=== PATIENT | female | born 1935 | race Caucasian/White ===

== ENCOUNTER → 2016-12-20 | Outpatient (CLI) | payer OTHER ==
[~2016-12-20] MED LIST: ACET-1256 PO; ALD2525 PO; ALUM-30 PO; AMT10 PO; ASPEC81 PO; ATV5 PO; CLTP PO; CRS20 PO; MULT-506 PO; PARO1TAB27 PO; POLY335019 PO; PRLSR20 PO; PROP20TA67 PO; TRAV0.00 OPB; VERA360C2 PO; ZOLP5TAB6 PO
== END | disposition home or self-care (01) ==
LOC: C.PATHSPEC 09:48
PROVIDERS: ATTEND Internal Medicine
DX: L82.1 Other seborrheic keratosis (principal)

== ENCOUNTER → 2017-03-07 | Outpatient (CLI) | payer OTHER ==
[2017-03-07 12:26] LABS: BASO % 0.7 %; BASO ABS # 0.04 K/uL (0-0.2); COMPLETE YES; EOS % 2.9 %; HEMATOCRIT 42.2 % (37-47); LYMPH % 29.9 %; LYMPH ABS # 1.75 K/uL (1.2-3.4); MEAN CELL VOLUME 93.4 fL (80-100); MEAN CORPUSCULAR HEMOGLOBIN 31.2 pg (25-34); MEAN CORPUSCULAR HGB CONC 33.4 g/dl (32-36); MEAN PLATELET VOLUME 9.8 fL (7.4-10.4); MONO % 9.6 %; NEUT % 56.9 %; PLATELET COUNT 305 K/uL (130-400); RED BLOOD COUNT 4.52 M/uL (4.2-5.4); WHITE BLOOD COUNT 5.86 K/uL (4.8-10.8)
[2017-03-07 12:56] LABS: AST/SGOT 20 U/L (15-37); BLOOD UREA NITROGEN 26 mg/dl (7-18); BUN/CREATININE RATIO 23.4 (10-20); CARBON DIOXIDE 31 mmol/L (21-32); CHLORIDE 99 mmol/L (98-107); CHOLESTEROL 181 mg/dl (0-200); GLUCOSE 112 mg/dl (70-99); POTASSIUM 3.6 mmol/L (3.5-5.1); SODIUM 139 mmol/L (136-145); TRIGLYCERIDES 139 mg/dl (0-150); VERY LOW DENSITY LIPOPROT CALC 28 mg/dl
[2017-03-07 13:06] LABS: ALB/GLOB RATIO 1.2 (0.9-2); ALKALINE PHOSPHATASE 113 U/L (45-117); ALT/SGPT 32 U/L (12-78); CHOLESTEROL/HDL RATIO 3.4; HDL CHOLESTEROL 53 mg/dl
[2017-03-07 13:21] LABS: CALCIUM 10.7 mg/dl (8.5-10.1)
--- NOTE | 2017-03-22 09:25 | CODING QUERY MEDICAL NECESSITY ---
SUPPORTING DIAGNOSIS NEEDED A supporting diagnosis is required for the test/procedure performed on this patient in order for us to be reimbursed by the patient's insurance. Please provide a supporting diagnosis for the following test/procedure listed below next to the test name along with your signature. *If there is no additional diagnosis for this patient that would support the following test/procedure please document that below next to the test/procedure. Test(s)/Procedure(s) that require a supporting diagnosis: DOS 03/07 * Vitamin D DIAGNOSIS: Provider Signature: Date: Thank you Karina Crowe Health Information Management Once completed, please kindly fax back to [phone] For questions please call [phone]
== END | disposition home or self-care (01) ==
LOC: C.LABSPEC 12:02
PROVIDERS: ATTEND Internal Medicine
DX: I10 Essential (primary) hypertension (principal); I48.91 Unspecified atrial fibrillation; E78.5 Hyperlipidemia, unspecified; M19.90 Unspecified osteoarthritis, unspecified site; R53.83 Other fatigue; M85.80 Other specified disorders of bone density and structure, unspecified site

== ENCOUNTER → 2017-06-28 | Outpatient (CLI) | payer OTHER ==
--- NOTE | 2017-06-29 07:57 | MAMMOGRAPHY REPORT ---
BILATERAL DIGITAL SCREENING MAMMOGRAM WITH CAD: 06/28/2017 CLINICAL HISTORY: Routine screening. Patient has no complaints. TECHNIQUE: Bilateral CC, MLO and repeat MLO views were obtained. Current study was also evaluated wi th a Computer Aided Detection (CAD) system. COMPARISON: Comparison is made to exams dated: 06/24/2016 mammogram, 06/23/2015 mammogram, 06/20/2014 ma mmogram, 06/18/2013 mammogram, 12/22/2012 ultrasound, and 12/22/2012 mammogram - [facility] er. BREAST COMPOSITION: There are scattered areas of fibroglandular density in both breasts. FINDINGS: There is stable nodularity of the left breast. Bilateral benign rim calcifications and sta ble groupings of round and punctate benign-appearing microcalcifications. Mild vascular calcificatio n in both breasts. No suspicious mass, architectural distortion or cluster of suspicious microcalcif ications is seen. IMPRESSION: ACR BI-RADS CATEGORY 1: NEGATIVE There is no mammographic evidence of malignancy. A 1 year screening mammogram is recommended. The pa tient will receive written notification of the results. Approximately 10% of breast cancers are not detected with mammography. A negative mammographic report should not delay biopsy if a clinically suggestive mass is present. Fouzia Santillan M.D. ay/:06/28/2017 14:29:08 Well Reactivator Operator: Cathy CORONA(Pacheco)(M), [facility] letter sent: Normal 1/2 BI-RADS Code: ACR BI-RADS Category 1: Negative
== END | disposition home or self-care (01) ==
LOC: C.MAMM 11:45
PROVIDERS: ATTEND Internal Medicine
DX: Z12.31 Encounter for screening mammogram for malignant neoplasm of breast (principal)

== ENCOUNTER → 2017-07-05 | Outpatient (CLI) | payer OTHER | END | disposition home or self-care (01) | LOC: C.LABSPEC 14:48 | PROVIDERS: ATTEND Internal Medicine | DX: Z12.11 Encounter for screening for malignant neoplasm of colon (principal) ==

== ENCOUNTER 2017-12-27 17:14 | Emergency (ER) | payer OTHER ==
[~2017-12-27] VITALS: Ht 167.6 cm; Wt 69.1 kg
[2017-12-27 17:27] VITALS: TEMP 36.5; Ht 167.6 cm; Wt 69.1 kg
--- NOTE | 2017-12-27 17:59 | DIAGNOSTIC IMAGING REPORT ---
CHEST ONE VIEW PORTABLE HISTORY: 82 years-old Female EVALUATE WEAKNESS acute weakness COMPARISON: Chest radiograph 03/19/2016 TECHNIQUE: Portable AP view of the chest FINDINGS: Cardiomediastinal and hilar silhouettes are within normal limits. No pneumothorax or pleural effusion. No overt pulmonary edema. Left subclavian pacer is noted with leads appearing unchanged. Ill-defined opacities of the lateral left midlung are noted inferior to the left pectoral battery pack. Additional patchy opacities are noted within the lateral left lung base. Bones appear grossly intact. IMPRESSION: Ill-defined patchy opacities of the left lateral midlung and left lung base are suspicious for pneumonia in the appropriate clinical setting. The above report was generated using voice recognition software. It may contain grammatical, syntax or spelling errors. Electronically signed by: Richmond Levine M.D. 12/27/2017 5:58 PM Dictated Date/Time: 12/27/2017 5:56 PM
[2017-12-27 18:27] VITALS: O2SAT 95
[2017-12-27 18:32] LABS: BASO % 0.2 %; BASO ABS # 0.02 K/uL (0-0.2); EOS % 1.2 %; HEMATOCRIT 40.4 % (37-47); HEMOGLOBIN 14.2 g/dL (12.0-16.0); IG# 0.02 K/uL (0.00-0.02); LYMPH % 16.5 %; MEAN CELL VOLUME 91.2 fL (80-100); MEAN CORPUSCULAR HEMOGLOBIN 32.1 pg (25-34); MEAN CORPUSCULAR HGB CONC 35.1 g/dl (32-36); MEAN PLATELET VOLUME 9.2 fL (7.4-10.4); MONO % 8.4 %; MONO ABS # 0.71 K/uL (0.11-0.59); NEUT % 73.5 %; NEUT ABS # 6.24 K/uL (1.4-6.5); PLATELET COUNT 310 K/uL (130-400); RED CELL DISTRIBUTION WIDTH CV 12.1 % (11.5-14.5); RED CELL DISTRIBUTION WIDTH SD 40.7 fL (36.4-46.3); WHITE BLOOD COUNT 8.49 K/uL (4.8-10.8)
[2017-12-27 18:44] LABS: PTT PATIENT 27.1 SECONDS (21.0-31.0)
--- NOTE | 2017-12-27 18:50 | DIAGNOSTIC IMAGING REPORT ---
HEAD WITHOUT CONTRAST (CT) CLINICAL HISTORY: 82 years-old Female presenting with EVALUATE WEAKNESS. TECHNIQUE: Multidetector CT imaging of the head was performed without the use of intravenous contrast. IV contrast: None. A dose lowering technique was used consistent with the principles of ALARA (as low as reasonably achievable). COMPARISON: None. CT DOSE (mGy.cm): The estimated cumulative dose is 537.48 mGy.cm. FINDINGS: Educational/Development Assistant topogram: Unremarkable. Ventricles and sulci normal in size. Brain parenchyma normal in appearance with preserved nam-white differentiation. No mass effect or midline shift. No hemorrhage or acute territorial infarct. No extra-axial fluid collection. Polypoid mucosal thickening in the right posterior ethmoid air cells. Calvarium intact. IMPRESSION: 1. No acute intracranial abnormality. Electronically signed by: Demond Villa M.D. 12/27/2017 6:48 PM Dictated Date/Time: 12/27/2017 6:46 PM
[2017-12-27 19:02] LABS: ALKALINE PHOSPHATASE 127 U/L (45-117); ALT/SGPT 25 U/L (12-78); AST/SGOT 18 U/L (15-37); BLOOD UREA NITROGEN 24 mg/dl (7-18); CALCIUM 9.6 mg/dl (8.5-10.1); CARBON DIOXIDE 28 mmol/L (21-32); CREATININE 1.12 mg/dl (0.60-1.20); GLUCOSE 106 mg/dl (70-99); POTASSIUM 3.5 mmol/L (3.5-5.1); SODIUM 134 mmol/L (136-145); TOTAL PROTEIN 7.8 gm/dl (6.4-8.2)
[2017-12-27] MEDS ORDERED: XLTOPS OPB (21:04)
[2017-12-27] MEDS ORDERED: SPR25 PO (21:04)
[2017-12-27] MEDS ORDERED: OMEP20CA9 PO (21:04)
[2017-12-27] MEDS ORDERED: PXL20 PO (21:04)
[2017-12-27] MEDS ORDERED: MRLP527 PO (21:04)
[2017-12-27] MEDS ORDERED: AMIT10TA6 PO (21:04)
[2017-12-27] MEDS ORDERED: LORA0.5T12 PO (21:04)
[2017-12-27] MEDS ORDERED: BRIM0.2S OPB (21:04)
[2017-12-27] MEDS ORDERED: ROSU20TA PO (21:06)
[2017-12-27] MEDS ORDERED: ASPEC81 PO (21:06)
[2017-12-27] MEDS ORDERED: HYDR25TA4 PO (21:09)
[2017-12-27] MEDS ORDERED: CALC-575 PO (21:09)
[2017-12-27] MEDS ORDERED: MULT-223 PO (21:09)
[2017-12-27] MEDS ORDERED: MULT-190 PO (21:18)
[2017-12-27 22:50] VITALS: BP 120/71; PULSE 69; O2SAT 93
--- NOTE | 2017-12-27 23:28 | EMERGENCY ROOM VISIT NOTE ---
History Report prepared by Patrick: Stanford Keenan Under the Supervision of: Dr. Baldev Ruth D.O. First contact with patient: 17:18 Stated Complaint: PAIN BETWEEN SHOULDER BLADES History of Present Illness The patient is a 82 year old female who presents to the Emergency Room with complaints of constant nausea that began at 1330. The patient states that she ate lunch at 1330 when she developed a headache and lightheadedness. The patient states that her lightheadedness caused her to become nauseous. She reports that following these symptoms she became short of breath and developed back pain between her shoulders. She states that her shortness of breath was worsened when she was standing and relieved with sitting down. The patient states that she has had similar episodes with these symptoms about 2-3 times a year. She states that her PCP tells her to take Propranolol and to sit down whenever she experiences these episodes. The patient states that she also developed a cough today. She reports that she is still currently nauseous and experiencing back pain, but reports that her headache and lightheadedness resolved. She denies change in vision, fevers, chest pain, vomiting, diarrhea, pain with urination, and melena. Source of History: patient Onset: 1330 Position: other (global) Quality: other (global) Timing: constant Associated Symptoms: + headache, + cough, + SOB, + back pain, No fevers, No chest pain, No vomiting, No melena, No diarrhea, No urinary symptoms Review of Systems See HPI for pertinent positives & negatives. A total of 10 systems reviewed and were otherwise negative. Past Medical & Surgical Medical Problems: (1) Arterial hypertension (2) CHEST PAIN DYSPNEA (3) Idiopathic peripheral neuropathy Family History Heart disease Hypertension Social History Smoking Status: Never Smoker Marital Status: Occupation Status: retired Current/Historical Medications Scheduled Acetaminophen (Tylenol), 1,000 MG PO HS Amitriptyline Hcl (Elavil), 20 MG PO QPM Aspirin (Aspirin EC Low Dose), 81 MG PO QPM Brimonidine Tartrate-Timolol M (Combigan), 1 DROP OPB BID Calcium Carbonate-Cholecalcife (Calcium 500+D3 500-400 mg-Unit), 1 TAB PO BID Hydrochlorothiazide (Hctz), 50 MG PO QAM Latanoprost (Latanoprost), 1 DROP OPB QPM Multiple Vitamins W/ Minerals (Multi For Her 50+), 1 TAB PO QAM Ocuvite Preservision (Ocuvite Preservision), 1 TAB PO QAM Omeprazole (Prilosec), 20 MG PO QPM Paroxetine (Paroxetine HCl), 20 MG PO QPM Rosuvastatin Calcium (Crestor), 20 MG PO QPM Spironolactone (Spironolactone), 50 MG PO QAM Verapamil Hcl (Verapamil Hcl Sr), 360 MG PO QAM Scheduled PRN Lorazepam (Lorazepam), 0.5 MG PO DAILY PRN for Anxiety Polyethylene (Polyethylene Glycol 3350), 17 GM PO DAILY PRN for Constipation Allergies Coded Allergies: No Known Allergies (Unverified , 02/19/16) Physical Exam Vital Signs Date Time Temp Pulse Resp B/P (MAP) Pulse Ox O2 Delivery O2 Flow Rate FiO2 12/27/17 22:50 69 22 120/71 93 12/27/17 21:58 65 12/27/17 20:51 65 15 128/61 95 Room Air 12/27/17 19:02 66 20 124/75 94 Room Air 12/27/17 19:02 66 20 124/75 94 Room Air 64 119/68 71 102/59 12/27/17 18:27 95 Room Air 12/27/17 17:46 62 12/27/17 17:27 36.5 94 18 133/78 95 Room Air Physical Exam GENERAL: Sitting up in bed, alert, well appearing, well nourished, no distress, non-toxic EYE EXAM: normal conjunctiva. PERRL and EOM's intact. OROPHARYNX: no exudate, no erythema, lips, buccal mucosa, and tongue normal and mucous membranes are moist NECK: supple, no nuchal rigidity, no adenopathy, non-tender LUNGS: Clear to auscultation. Normal chest wall mechanics HEART: no murmurs, S1 normal and S2 normal ABDOMEN: abdomen soft, non-tender, normo-active bowel sounds, no masses, no rebound or guarding. BACK: Back is symmetrical on inspection and there is no deformity, no midline tenderness, no CVA tenderness. SKIN: no rashes and no bruising UPPER EXTREMITIES: upper extremities are grossly normal. LOWER EXTREMITIES: No pitting edema. Calves are equal bilaterally. NEURO EXAM: Normal sensorium, cranial nerves II-XII intact, normal speech, no weakness of arms, no weakness of legs. No drift. Finger to nose intact. Gross sensation intact. Medical Decision & Procedures ER Provider Diagnostic Interpretation: Radiology results as stated below per my review and the radiologist's interpretation: HEAD WITHOUT CONTRAST (CT) CLINICAL HISTORY: 82 years-old Female presenting with EVALUATE WEAKNESS. TECHNIQUE: Multidetector CT imaging of the head was performed without the use of intravenous contrast. IV contrast: None. A dose lowering technique was used consistent with the principles of ALARA (as low as reasonably achievable). COMPARISON: None. CT DOSE (mGy.cm): The estimated cumulative dose is 537.48 mGy.cm. FINDINGS: Awning Spreader topogram: Unremarkable. Ventricles and sulci normal in size. Brain parenchyma normal in appearance with preserved nam-white differentiation. No mass effect or midline shift. No hemorrhage or acute territorial infarct. No extra-axial fluid collection. Polypoid mucosal thickening in the right posterior ethmoid air cells. Calvarium intact. IMPRESSION: 1. No acute intracranial abnormality. Electronically signed by: Demond Villa M.D. 12/27/2017 6:48 PM Dictated Date/Time: 12/27/2017 6:46 PM CHEST ONE VIEW PORTABLE HISTORY: 82 years-old Female EVALUATE WEAKNESS acute weakness COMPARISON: Chest radiograph 03/19/2016 TECHNIQUE: Portable AP view of the chest FINDINGS: Cardiomediastinal and hilar silhouettes are within normal limits. No pneumothorax or pleural effusion. No overt pulmonary edema. Left subclavian pacer is noted with leads appearing unchanged. Ill-defined opacities of the lateral left midlung are noted inferior to the left pectoral battery pack. Additional patchy opacities are noted within the lateral left lung base. Bones appear grossly intact. IMPRESSION: Ill-defined patchy opacities of the left lateral midlung and left lung base are suspicious for pneumonia in the appropriate clinical setting. The above report was generated using voice recognition software. It may contain grammatical, syntax or spelling errors. Electronically signed by: Richmond Levine M.D. 12/27/2017 5:58 PM Dictated Date/Time: 12/27/2017 5:56 PM Laboratory Results 12/27/17 18:22 Red Blood Count 4.43, Mean Corpuscular Volume 91.2, Mean Corpuscular Hemoglobin 32.1, Mean Corpuscular Hemoglobin Concent 35.1, Mean Platelet Volume 9.2, Neutrophils (%) (Auto) 73.5, Lymphocytes (%) (Auto) 16.5, Monocytes (%) (Auto) 8.4, Eosinophils (%) (Auto) 1.2, Basophils (%) (Auto) 0.2, Neutrophils # (Auto) 6.24, Lymphocytes # (Auto) 1.40, Monocytes # (Auto) 0.71, Eosinophils # (Auto) 0.10, Basophils # (Auto) 0.02 12/27/17 18:22 Test 12/27/17 18:22 12/27/17 19:08 12/27/17 19:13 12/27/17 20:19 White Blood Count 8.49 K/uL (4.8-10.8) Red Blood Count 4.43 M/uL (4.2-5.4) Hemoglobin 14.2 g/dL (12.0-16.0) Hematocrit 40.4 % (37-47) Mean Corpuscular Volume 91.2 fL (80-100) Mean Corpuscular Hemoglobin 32.1 pg (25-34) Mean Corpuscular Hemoglobin Concent 35.1 g/dl (32-36) Platelet Count 310 K/uL (130-400) Mean Platelet Volume 9.2 fL (7.4-10.4) Neutrophils (%) (Auto) 73.5 % Lymphocytes (%) (Auto) 16.5 % Monocytes (%) (Auto) 8.4 % Eosinophils (%) (Auto) 1.2 % Basophils (%) (Auto) 0.2 % Neutrophils # (Auto) 6.24 K/uL (1.4-6.5) Lymphocytes # (Auto) 1.40 K/uL (1.2-3.4) Monocytes # (Auto) 0.71 K/uL (0.11-0.59) Eosinophils # (Auto) 0.10 K/uL (0-0.5) Basophils # (Auto) 0.02 K/uL (0-0.2) RDW Standard Deviation 40.7 fL (36.4-46.3) RDW Coefficient of Variation 12.1 % (11.5-14.5) Immature Granulocyte % (Auto) 0.2 % Immature Granulocyte # (Auto) 0.02 K/uL (0.00-0.02) Prothrombin Time 10.3 SECONDS (9.0-12.0) Prothromb Time International Ratio 1.0 (0.9-1.1) Activated Partial Thromboplast Time 27.1 SECONDS (21.0-31.0) Partial Thromboplastin Ratio 1.0 D-Dimer 340 ug/L FEU (0-500) Anion Gap 9.0 mmol/L (3-11) Est Creatinine Clear Calc Drug Dose 35.6 ml/min Estimated GFR () 52.6 Estimated GFR (Non- 45.4 BUN/Creatinine Ratio 21.7 (10-20) Calcium Level 9.6 mg/dl (8.5-10.1) Total Bilirubin 0.3 mg/dl (0.2-1) Direct Bilirubin 0.1 mg/dl (0-0.2) Aspartate Amino Transf (AST/SGOT) 18 U/L (15-37) Alanine Aminotransferase (ALT/SGPT) 25 U/L (12-78) Alkaline Phosphatase 127 U/L (45-117) Total Protein 7.8 gm/dl (6.4-8.2) Albumin 4.0 gm/dl (3.4-5.0) Thyroid Stimulating Hormone (TSH) 2.230 uIu/ml (0.300-4.500) Urine Color YELLOW Urine Appearance CLEAR (CLEAR) Urine pH 7.0 (4.5-7.5) Urine Specific [place] 1.008 (1.000-1.030) Urine Protein NEG (NEG) Urine Glucose (UA) NEG (NEG) Urine Ketones NEG (NEG) Urine Occult Blood NEG (NEG) Urine Nitrite NEG (NEG) Urine Bilirubin NEG (NEG) Urine Urobilinogen NEG (NEG) Urine Leukocyte Esterase NEG (NEG) Bedside Glucose 102 mg/dl (70-90) Troponin I < 0.015 ng/ml (0-0.045) Laboratory results per my review. ECG Indication: nausea Rate (beats per minute): 62 Rhythm: other (atrial paced) Findings: Q waves (Inferior), left axis deviation Comparison ECG Date: 03/20/16 Change: Atrial paced is new. Patient's electrocardiogram interpreted by me. ED Course ED COURSE: Vital signs were reviewed and showed normal The patients medical record was reviewed The above diagnostic studies were performed and reviewed. ED treatments and interventions as stated above. 1720: The patient was evaluated in room C09. A complete history and physical examination was performed. 1812: I reevaluated the patient and updated her. 1943: I reevaluated the patient and she is resting comfortably. I updated her on her results. 2238: Upon reevaluation, the patient is resting comfortably. I discussed my findings with the patient and he understands and agrees with the treatment plan. Based on the patients age, coexisting illnesses, exam and lab findings the decision to treat as an outpatient was made. The patient remained stable while under my care. The patient appeared well at the time of discharge. Medical Decision Differential diagnosis includes etiologies such as benign positional vertigo, dehydration, hypovolemia, anemia, tumor, infection, hypoglycemia, electrolyte abnormalities, cardiac sources, intracerebral event, toxicologic, neurologic, as well as others were entertained. Patient is an 82-year-old female who presents the ER for nausea associated with lightheadedness and shortness of breath. CBC along with BMP, LFTs and bilirubin and TSH was unremarkable. Troponin was negative 2. D-dimer was negative. UA was negative. Abdominal exam and neurologic exam were completely unremarkable. Back pain did have clear reproducible paraspinal tenderness which I believe is muscle skeletal. CT head was negative. Interrogation of her pacemaker was unremarkable. Patient was up to the bedside. It took a prolonged period to interrogate her pacemaker due to technical difficulties. She felt 100% better. Uncertain of the true etiologies of her symptoms however I do not feel that this is likely cardiac. I also do not feel this is neurologic at this time. Did give them strict precautions and she was discharged to follow-up with PCP as an outpatient. Discussed with Pt concerning signs and symptoms to watch out for. Pt was instructed to follow up with their PCP and discussed with the patient their option to return to the ED at anytime for persistent or worsening symptoms. The appropriate anticipatory guidance and out-patient management, including indications for return to the emergency department, were explained at length to the patient and understood. Medication Reconcilliation Current Medication List: was personally reviewed by me Blood Pressure Screening Patient's blood pressure: Normal blood pressure Impression Primary Impression: Lightheaded Additional Impressions: Shortness of breath Hypokalemia Scribe Attestation The scribe's documentation has been prepared under my direction and personally reviewed by me in its entirety. I confirm that the note above accurately reflects all work, treatment, procedures, and medical decision making performed by me. Departure Information Dispostion Home / Self-Care Referrals Jameel Taylor M.D. (PCP) Forms HOME CARE DOCUMENTATION FORM, IMPORTANT VISIT INFORMATION, WORK / SCHOOL INSTRUCTIONS Patient Instructions ED Dizziness UKO, ED Dyspnea Shortness of Breath, My [facility] Additional Instructions Please follow up with your primary care doctor with in the next 24 hours. Any worsening of your symptoms, please return to the ED immediately. This includes any fevers greater than 100.4, worsening pain, chest pain, shortness breath, persistent nausea, vomiting, unable to eat or drink, or any other concerning signs or symptoms from your standpoint. Problem Qualifiers
== END 2017-12-27 22:50 | disposition home or self-care (01) ==
LOC: EDBD 17:14 → C.EDC 17:15
DX: R42 Dizziness and giddiness (principal); R06.02 Shortness of breath; E87.6 Hypokalemia; I10 Essential (primary) hypertension; G60.9 Hereditary and idiopathic neuropathy, unspecified; Z82.49 Family history of ischemic heart disease and other diseases of the circulatory system; Z79.82 Long term (current) use of aspirin; Z79.899 Other long term (current) drug therapy; Z95.0 Presence of cardiac pacemaker

== ENCOUNTER → 2018-06-29 | Outpatient (CLI) | payer OTHER ==
[~2018-06-29] MED LIST changes: -ALD2525 PO; -ALUM-30 PO; +AMIT10TA6 PO; -AMT10 PO; -ASPEC81 PO; +ASPI-320 PO; -ATV5 PO; +BRIM0.2S OPB; +CALC-575 PO; -CLTP PO; -CRS20 PO; +HYDR25TA4 PO; +LORA0.5T12 PO; +MRLP527 PO; +MULT-190 PO; +MULT-223 PO; -MULT-506 PO; +OMEP20CA9 PO; -PARO1TAB27 PO; -POLY335019 PO; -PRLSR20 PO; -PROP20TA67 PO; +PXL20 PO; +ROSU20TA PO; +SPIR25TA6 PO; -TRAV0.00 OPB; +XLTOPS OPB; -ZOLP5TAB6 PO
--- NOTE | 2018-06-29 15:40 | MAMMOGRAPHY REPORT ---
BILATERAL DIGITAL SCREENING MAMMOGRAM TOMOSYNTHESIS WITH CAD: 06/29/2018 CLINICAL HISTORY: Routine screening. Patient has no complaints. TECHNIQUE: The study was acquired using full field digital technology and interpreted from soft copy. Breast tomosynthesis in addition to standard 2D mammography was performed. Current study was also ev aluated with a Computer Aided Detection (CAD) system. COMPARISON: Comparison is made to exams dated: 06/28/2017 mammogram, 06/24/2016 mammogram, 06/23/2015 m ammogram, 06/18/2013 mammogram, 12/22/2012 ultrasound, and 12/28/2011 mammogram - [facility]ter. BREAST COMPOSITION: There are scattered areas of fibroglandular density in both breasts. FINDINGS: No suspicious masses, calcifications, or areas of architectural distortion are noted in either breast . There has been no significant interval change compared to prior exams. Bilateral benign-appearing calcifications and bilateral nodularity are not significantly changed compared to prior exams. IMPRESSION: ACR BI-RADS CATEGORY 2: BENIGN There is no mammographic evidence of malignancy. A 1 year screening mammogram is recommended.( 019) The patient will receive written notification of the results. Some breast cancers are not detected with mammography. A negative mammographic report should not abdoul y biopsy if a clinically suggestive mass is present. Gunjan Petit M.D. ah/:06/29/2018 14:31:34 Network Strategist: RT Mathew(Pacheco)(M), [facility] letter sent: Normal 1/2 BI-RADS Code: ACR BI-RADS Category 2: Benign
== END | disposition home or self-care (01) ==
LOC: C.MAMM 12:55
PROVIDERS: ATTEND Internal Medicine
DX: Z12.31 Encounter for screening mammogram for malignant neoplasm of breast (principal)

== ENCOUNTER 2023-12-30 13:54 | Observation (INO) ==
--- NOTE | 2023-12-30 14:07 | ED Triage Note ---
Date of Service December 30, 2023 Provider in Triage Author: Theodora Chowdhury History of Present Illness This patient was briefly evaluated while in triage. An abbreviated physical exam was performed. This patient is a 88-year-old Female who presents to the ED for evaluation of abdominal pain in lower abdomen and vomiting since this morning upon waking. Physical Exam CONSTITUTIONAL: in no acute pain or distress, resting comfortably SKIN: pink, warm, dry CARDIAC: regular rate and rhythm RESPIRATORY: in no respiratory distress, lungs clear to auscultation ABDOMEN: low pelvic TTP MSK: 5/5 strength throughout NEURO: no neuro deficits, alert and oriented x 3 Initial orders for labs and / or imaging were placed and patient was placed in the waiting area until a bed is available. Please see further documentation for the full ED course.
[2023-12-30] MEDS: ONDANSETRON INJ 2 MG/ML 2 ML VIAL IV STA (15:19)
[2023-12-30] MEDS: SODIUM CHLORIDE 0.9% 1,000 ML IV STA (15:19)
[2023-12-30 16:01] LABS: Basophils # (auto) 0.06 K/uL (0.00-0.20); Basophils % (auto) 0.3 %; Eosinophils # (auto) 0.02 K/uL (0.00-0.50); Eosinophils % (auto) 0.1 %; Hematocrit (blood only) 45.2 % (37.0-47.0); Hemoglobin 15.3 g/dl (12.0-16.0); Immature Granulocytes # (auto) 0.11 K/uL (0.01-0.20); Immature Granulocytes % (auto) 0.6 %; Lymphocytes # (auto) 1.07 K/uL (1.20-3.40); Lymphocytes % (auto) 6.1 %; Mean Corpuscular Hemoglobin 32.1 pg (25.0-34.0); Mean Corpuscular Hgb Conc 33.8 g/dL (32.0-36.0); Mean Corpuscular Volume 94.8 fL (80.0-100.0); Mean Platelet Volume 9.6 fL (9.4-12.4); Monocytes # (auto) 1.19 K/uL (0.11-0.59); Monocytes % (auto) 6.8 %; Neutrophils # (auto) 15.16 K/uL (1.40-6.50); Neutrophils % (auto) 86.1 %; Platelet Count 290 K/uL (130-400); RDW Coefficient of Variation 12.2 % (11.5-14.5); RDW Standard Deviation 42.5 fL (36.4-46.3); Red Blood Count 4.77 M/uL (4.20-5.40); White Blood Count 17.61 K/ul (4.8-10.8)
[2023-12-30 16:10] LABS: Albumin Globulin Ratio 1.7 (0.9-2); Albumin Level 4.7 gm/dl (3.4-5.0); BUN Creatinine Ratio 20.7 (10-20); Bilirubin,Total 0.8 mg/dl (0.2-1.0); Calcium 11.1 mg/dl (8.6-10.3); Creatinine Clr Calc Pharmacy 43.2 ml/min; Est GFR (Non-African American) 55.2 ml/min; Globulin 2.8 gm/dl (2.5-4.0); Potassium 3.3 mmol/L (3.5-5.1); Total Protein 7.5 gm/dl (6.0-8.3)
[2023-12-30] MEDS: OPTIRAY 320 500ml IV ONE (19:31)
--- NOTE | 2023-12-30 19:48 | CT Scan Report ---
Exam(s): CT ABDOMEN + PELVIS With Contrast IV Amt: 92 cc opti 320 EXAM: CT Abdomen and Pelvis With Intravenous Contrast CLINICAL HISTORY: Reason for exam: abd pain, vomiting. TECHNIQUE: Axial computed tomography images of the abdomen and pelvis with intravenous contrast. CTDI is 19.72 mGy and DLP is 962.01 mGy-cm. Automated exposure control was utilized for the study. A dose lowering technique was utilized adhering to the principles of ALARA. CONTRAST: Patient received 92 cc opti 320 of IV contrast COMPARISON: CT abdomen pelvis 02/12/2016 FINDINGS: Mediastinum: Trace hiatal hernia. ABDOMEN: Liver: Unremarkable. Gallbladder and bile ducts: Cholecystectomy. Dilated biliary tree. No radiopaque stone. Pancreas: Unremarkable. Spleen: Unremarkable. Adrenals: Unremarkable. Kidneys and ureters: No hydronephrosis. Anterior cortical scarring and calcification within the right kidney. Stomach and bowel: Mild colonic mucosal thickening from the descending colon through the rectum consistent with mild nonspecific colitis. No bowel obstruction. PELVIS: Appendix: No findings to suggest acute appendicitis. Bladder: Unremarkable. Reproductive: Hysterectomy. ABDOMEN and PELVIS: Intraperitoneal space: Unremarkable. No free air. No significant fluid collection. Bones/joints: No acute fracture. Soft tissues: Unremarkable. Vasculature: Unremarkable. Lymph nodes: Unremarkable. IMPRESSION: 1. Mild colonic mucosal thickening from the descending colon through the rectum consistent with mild nonspecific colitis. 2. Trace hiatal hernia. Electronically signed by: Kurtis Grullon MD 12/30/23 19:47 PM
[2023-12-30 21:03] LABS: Appearance Urine Clear (Clear); Bacteria Urine Automated Negative (Negative); Bilirubin Urine Negative (Negative); Blood Urine Negative (Negative); Cast Urine Automated 0 /lpf (0-5); Color Urine Yellow; Glucose Urine UA Negative (Negative); Ketones Urine Negative (Negative); Leukocyte Esterase Urine Trace (Negative); Nitrite Urine Negative (Negative); Protein Urine Negative (Negative); RBC Urine Automated 0-4 /hpf (0-4); Specific Gravity Urine 1.027 (1.000-1.030); Urobilinogen Urine Negative (Negative)
[2023-12-30] MEDS: SODIUM CHLORIDE 0.9% 1,000 ML IV SCH (21:54)
[2023-12-30] MEDS: SODIUM CHLORIDE 0.9% 500 ML IV ONE (22:12)
--- NOTE | 2023-12-30 22:44 | History & Physical Report ---
Date of Service December 30, 2023 Assessment & Plan (1) Sepsis: Plan: Patient meets SIRs criteria with leukocytosis, tachycardia, and elevated lactate on admission. CT A&P with signs of colitis. Started empiric Zosyn and fluid resuscitation. Lactate improved after 1.5L NS. Not ideal study for ischemic bowel evaluation, but as patient clinically well and lactate improving would hold off on repeat scan for now. Continue with mIVF @ 125 mL. Continue Zosyn for now. If blood cultures negative and continued stability patient likely to be discharged in the AM. f/u blood cultures AM CBC and CMP antiemetics as needed (2) Nausea, vomiting, and diarrhea: Plan: See above (3) Colitis: Plan: See above (4) Hypokalemia: Plan: Repleted. Resume home K. Check Mag. Replete as indicated (5) Primary hypertension: Plan: Continue home meds (6) Hyperlipidemia: Plan: Continue home meds (7) Depression: Plan: Continue home meds (8) Anxiety: Plan: Continue home meds (9) History of permanent cardiac pacemaker placement: Plan: Stable (10) High serum lactate: Plan: Resolved Plan Code status: conditional - DNR DVT ppx: low risk - anticipate short hospital stay FENGI: CLD, can advance as tolerates, mIVF at 125 mL/hr Dispo: MedSurg with tele History of Present Illness Chief Complaint: vomiting Primary Care Provider: Gabriel Davis DO 88 y/o female with a PMHx of HTN, pacemaker placement, and depression/anxiety here for evaluation of nausea. Patient with 2 episodes of nonbloody emesis and some nausea starting this morning. Did have an instance of abdominal pain that resolved after a nonbloody loose bowel movement. Otherwise feeling well. No fevers or chills. No CP or SOB. No recent illnesses. There was concern for possible ischemic bowel upon admission. CT A&P with signs of colitis. Lactate slightly elevated at 2.1. Repeat 1.9. Fluid resuscitated with 1.5L. White count elevated to 17. Upon my interview patient is doing well. No more nausea or vomiting. No abdominal pain. Reports feeling hungry. Allergies Allergy/AdvReac Type Severity Reaction Status Date / Time No Known Allergies Allergy Verified 12/30/23 19:56 Home Medications Medication Instructions Recorded Confirmed Type latanoprost 0.005 % eye drops 1 drp OPB DAILY 04/30/19 12/30/23 History multivitamin 1 tab PO DAILY 04/30/19 12/30/23 History polyethylene glycol 3350 17 17 g PO DAILY 04/30/19 12/30/23 History gram/dose oral powder (Miralax) aspirin 81 mg tablet,delayed 81 mg PO DAILY 12/01/20 12/30/23 History release timolol 0.25 % eye drops 1 drp ophthalmic (eye) DAILY 07/05/22 12/30/23 History rosuvastatin 20 mg tablet 20 mg PO DAILY #90 tabs 09/17/22 12/30/23 Rx cholecalciferol (vitamin D3) 10 10 mcg PO DAILY 09/23/22 12/30/23 History mcg (400 unit) capsule citalopram 20 mg tablet 20 mg PO DAILY #90 tabs 03/02/23 12/30/23 Rx acetaminophen 650 mg 650 mg PO Q8H PRN Pain 06/06/23 12/30/23 History tablet,extended release (Tylenol Arthritis Pain) potassium chloride 10 mEq 10 meq PO DAILY #90 caps 08/12/23 12/30/23 Rx capsule,extended release gabapentin 100 mg capsule 100 mg PO DAILY #90 caps 08/25/23 12/30/23 Rx spironolactone 25 mg tablet 25 mg PO DAILY #90 tabs 09/01/23 12/30/23 Rx hydrochlorothiazide 50 mg tablet 50 mg PO DAILY #90 tabs 09/15/23 12/30/23 Rx lorazepam 0.5 mg tablet 0.5 mg PO DAILY PRN anxiety 90 10/10/23 12/30/23 Rx days #90 tabs diltiazem HCl 360 mg capsule,24 360 mg PO DAILY #90 caps 12/26/23 12/30/23 Rx hr,extended release azelastine 137 mcg (0.1 %) nasal 2 spray intranasal DAILY 12/30/23 12/30/23 History spray aerosol Past Med/Surg History Medical History Anxiety Chronic cough Depression Hyperlipidemia Insomnia PAT (paroxysmal atrial tachycardia) Primary hypertension SSS (sick sinus syndrome) Surgical History H/O colonoscopy H/O tooth extraction History of cataract extraction with lens replacement History of cholecystectomy History of permanent cardiac pacemaker placement History of total hysterectomy Family History Sister Myocardial infarction Stroke Ovarian cancer Dementia Heart disease Brother Myocardial infarction Heart disease Father Stomach cancer Mother Stroke Other No family history of adverse response to anesthesia No family history of bleeding disorder Denies family history of Prostate cancer Diabetes Breast cancer Lung cancer Colorectal cancer Social History Smoking Status: Never smoker Second Hand Exposure: No; Do You Dip or Chew Tobacco: No; Hx Alcohol Use: No Hx Substance Use: No Preferred Language: Irish Visual Impairment: Limited Hearing Ability: Use of Hearing Aid Scrap Preparer Required: No marital status: / Current Living Situation: Alone current occupational status: retired How many Children do You have: 3 Other Information That Helps Us Care for You: No Feels Safe at Home: Yes Safety Concerns: Feels Safe At This Time Childhood Exposure to Second-Hand Smoke: No caffeine: Yes during the past year weight has: remained stable Dental Care, Regularly: No Physical Activity Frequency: Does not Exercise Seatbelt Use: always Sunscreen Use: Yes Assistive Devices: Cane and Glasses Review of Systems 2 Review of Systems: See HPI Physical Exam 2 Physical Exam: Gen: well appearing female patient in NAD HEENT: AT NC MMM OP roxanne Resp: CTAB no wheezing no increased work of breathing CV: RRR no m/r/g clinically well perfused 2+ peripheral pulses no edema Abd: soft, non-tender, non-distended +BS MSK: no obvious deformities Skin: no rashes or bruising Neuro: alert and oriented Psych: appropriate mood and affect Results & Data Results & Data Vital Signs (Past 12 Hours) Vital Signs Temp Pulse Pulse Resp BP BP Pulse Ox 12/30/23 22:27 94 H 12/30/23 22:10 94 H 16 157/96 H 94 12/30/23 19:08 79 18 149/79 H 93 12/30/23 16:54 12/30/23 16:53 83 16 141/69 H 93 12/30/23 14:05 36.7 C 90 18 176/86 H 93 O2 Del Method 12/30/23 22:27 12/30/23 22:10 Room Air 12/30/23 19:08 Room Air 12/30/23 16:54 Room Air 12/30/23 16:53 Room Air 12/30/23 14:05 Room Air Laboratory Results 12/30/23 15:21 12/30/23 15:21 Diagnostic Findings Abdomen/Pelvis CT 12/30/23 18:29 FINDINGS: Mediastinum: Trace hiatal hernia. ABDOMEN: Liver: Unremarkable. Gallbladder and bile ducts: Cholecystectomy. Dilated biliary tree. No radiopaque stone. Pancreas: Unremarkable. Spleen: Unremarkable. Adrenals: Unremarkable. Kidneys and ureters: No hydronephrosis. Anterior cortical scarring and calcification within the right kidney. Stomach and bowel: Mild colonic mucosal thickening from the descending colon through the rectum consistent with mild nonspecific colitis. No bowel obstruction. PELVIS: Appendix: No findings to suggest acute appendicitis. Bladder: Unremarkable. Reproductive: Hysterectomy. ABDOMEN and PELVIS: Intraperitoneal space: Unremarkable. No free air. No significant fluid collection. Bones/joints: No acute fracture. Soft tissues: Unremarkable. Vasculature: Unremarkable. Lymph nodes: Unremarkable. IMPRESSION: 1. Mild colonic mucosal thickening from the descending colon through the rectum consistent with mild nonspecific colitis. 2. Trace hiatal hernia. Supervising Physician Co-Signing Physician Notes Patient seen and examined at bedside. Chart reviewed. Case discussed with Dr. Iraheta and I agree with the assessment and plan as above Resident Activity Tracking Resident Involvement: Resident Care Provided Care Provided: Adult Hospital Medicine
--- NOTE | 2023-12-30 23:12 | Emergency Department Note ---
Impression & Plan Colitis, Nausea, vomiting, and diarrhea, High serum lactate ED Provider Note NAME: YOLANDA LAMA AGE: 88 SEX: Female INFORMANT: Patient ED PROVIDER(S): Chase Dominguez MD CHIEF COMPLAINT: Vomiting PLAN: Disposition: Admitted Outpatient prescription management: none Referral: None patient presented because of MEDICAL DECISION MAKING: Vomiting and diarrhea. She presented at time of high volume and high acuity. Protocol labs were performed. Patient was noted to have a leukocytosis on CBC and mild dehydration and chemistry panel. She was given IV normal saline however she declined the Zofran that was ordered. She noted that her nausea and vomiting had ceased. The patient was sent for CT imaging. She was found to have a colitis. The patient had a high serum lactate. I discussed the possible etiologies with the patient. In light of the elevated lactate further management in the hospital was appropriate. The patient was initially reluctant due to family obligations but was able to have coverage for her handicapped son and is agreeing to stay in the hospital. [facility] Discussed case with Dr. Terry. She and I discussed the possibility of CT angiography and repeat lactate. Patient was hydrated. Unfortunately patient did receive CT dye on the first image and cannot have a angio this evening. I did notify Dr. Terry and she will evaluate the patient as planned and hold off on imaging Care/management discussed with: environmental project manager Level of care consideration(s): After review of the information above and other included data, I feel the patient requires escalation of care to admission Triage Nursing notes: reviewed and agree them. Vital Signs: reviewed and remarkable for hypertension Additional History obtained from: none Chronic Medical/Social Conditions affecting care: none Prior/ Outside/ External records reviewed: none Differential Diagnosis: Etiologies such as gastroenteritis, food borne illness, infections, appendicitis, diverticulitis, inflammatory bowel disease, GI bleed, mesenteric ischemia, biliary pathology, as well as others were entertained. Diagnostics, independently interpreted by me: ECG: none Cardiac Monitoring: Cardiac monitoring ordered by me: The patient was placed on continuous cardiac monitoring and observed. It revealed a normal sinus rhythm at 77 beats per minute without ectopy or evidence of dysrhythmia. Medical decision rules: none Imaging studies: None HPI: 88 year old Female arrives for evaluation of vomiting and diarrhea.. This started today. Patient also notes some crampy abdominal pain. This is coming and going. She denies any travel or recent antibiotic use. No sick contacts. No prior history of the same. Pt denies LOC, headache, fevers, chills, diaphoresis, visual changes, neck pain, chest pain, breathing difficulties, back pain, melena, hematochezia, urinary symptoms, numbness, weakness, lymphadenopathy, rash, or other complaints. PAST MEDICAL HISTORY: See Below, PAT PAST SURGICAL HISTORY: See Below, SOCIAL HISTORY: See Below, retired HOME MEDICATIONS: See Below ALLERGIES: See Below VITALS: See Below PHYSICAL EXAMINATION: GENERAL: Awake, alert, nontoxic-appearing, in no distress HENT: Normocephalic, atraumatic. Oropharynx unremarkable. EYES: Normal conjunctiva. Sclera non-icteric. NECK: Inspection normal. Non-tender. Supple. No nuchal rigidity. FROM. No masses. RESPIRATORY: Clear to auscultation. No wheezes. No rales. Normal respiratory effort. CARDIAC: Normal rate. Normal rhythm. No murmurs. No rubs. Extremities warm and well perfused. Pulses equal. No JVD. GI: Soft, non-distended. Minimal left side tenderness to palpation. No rebound or guarding. No masses. RECTAL: Deferred. MUSCULOSKELETAL: Atraumatic. Chest examination reveals no tenderness. The back is symmetrical on inspection without obvious abnormality. There is no CVA tenderness to palpation. No joint edema. LOWER EXTREMITIES: Calves are equal size bilaterally and non-tender. No edema. No discoloration. NEURO: Normal sensorium. No sensory or motor deficits noted. SKIN: No rash or jaundice noted. PROCEDURES: none CRITICAL CARE: none OBSERVATION NOTE: none Past Med/Surg History Medical History Anxiety Chronic cough Depression Hyperlipidemia Insomnia PAT (paroxysmal atrial tachycardia) Primary hypertension SSS (sick sinus syndrome) Surgical History H/O colonoscopy H/O tooth extraction History of cataract extraction with lens replacement History of cholecystectomy History of permanent cardiac pacemaker placement History of total hysterectomy Family History Sister Myocardial infarction Stroke Ovarian cancer Dementia Heart disease Brother Myocardial infarction Heart disease Father Stomach cancer Mother Stroke Other No family history of adverse response to anesthesia No family history of bleeding disorder Denies family history of Prostate cancer Diabetes Breast cancer Lung cancer Colorectal cancer Social History Smoking Status: Never smoker Second Hand Exposure: No; Do You Dip or Chew Tobacco: No; Hx Alcohol Use: No Hx Substance Use: No Preferred Language: Comoran Visual Impairment: Limited Hearing Ability: Use of Hearing Aid marital status: / Current Living Situation: Alone current occupational status: retired How many Children do You have: 3 Feels Safe at Home: Yes Childhood Exposure to Second-Hand Smoke: No caffeine: Yes during the past year weight has: remained stable Dental Care, Regularly: No Physical Activity Frequency: Does not Exercise Seatbelt Use: always Sunscreen Use: Yes Assistive Devices: Denture - Upper, Denture - Lower, Glasses and Hearing Aid - Bilateral Allergies Allergies Allergy/AdvReac Type Severity Reaction Status Date / Time No Known Allergies Allergy Verified 12/30/23 19:56 Home Meds Home Medications Medication Instructions Recorded Confirmed latanoprost 0.005 % eye drops 1 drp OPB DAILY 04/30/19 12/30/23 multivitamin 1 tab PO DAILY 04/30/19 12/30/23 polyethylene glycol 3350 17 17 g PO DAILY 04/30/19 12/30/23 gram/dose oral powder (Miralax) aspirin 81 mg tablet,delayed 81 mg PO DAILY 12/01/20 12/30/23 release timolol 0.25 % eye drops 1 drp ophthalmic (eye) DAILY 07/05/22 12/30/23 cholecalciferol (vitamin D3) 10 10 mcg PO DAILY 09/23/22 12/30/23 mcg (400 unit) capsule acetaminophen 650 mg 650 mg PO Q8H PRN Pain 06/06/23 12/30/23 tablet,extended release (Tylenol Arthritis Pain) azelastine 137 mcg (0.1 %) nasal 2 spray intranasal DAILY 12/30/23 12/30/23 spray aerosol Previous Rx's Medication Instructions Recorded rosuvastatin 20 mg tablet 20 mg PO DAILY #90 tabs 09/17/22 citalopram 20 mg tablet 20 mg PO DAILY #90 tabs 03/02/23 potassium chloride 10 mEq 10 meq PO DAILY #90 caps 08/12/23 capsule,extended release gabapentin 100 mg capsule 100 mg PO DAILY #90 caps 08/25/23 spironolactone 25 mg tablet 25 mg PO DAILY #90 tabs 09/01/23 hydrochlorothiazide 50 mg tablet 50 mg PO DAILY #90 tabs 09/15/23 lorazepam 0.5 mg tablet 0.5 mg PO DAILY PRN anxiety 90 10/10/23 days #90 tabs diltiazem HCl 360 mg capsule,24 360 mg PO DAILY #90 caps 12/26/23 hr,extended release Results & Data (ED) Vital Signs Vital Signs - 24 hr 12/30/23 14:05 12/30/23 16:53 12/30/23 16:54 Temperature 36.7 C Temperature Source Oral Pulse Rate 90 Pulse Rate [Finger] 83 Respiratory Rate 18 16 Respiratory Effort / Characteristics Non-Labored Spontaneous Non-Labored Spontaneous Respiratory Depth Normal Normal Respiratory Pattern Regular Blood Pressure 176/86 H Blood Pressure [Right Arm] 141/69 H Blood Pressure Mean 116 Blood Pressure Mean [Right Arm] 93 Blood Pressure Position [Right Arm] Sitting Pulse Oximetry 93 93 Oxygen Delivery Method Room Air Room Air Room Air Sepsis Recent Fever Within 48 Hours No Sepsis New/Unexplained Change in Mental Status No Sepsis Action Taken by Nursing No Action Required 12/30/23 19:08 12/30/23 22:10 12/30/23 22:27 Temperature Temperature Source Pulse Rate 94 H Pulse Rate [Finger] 79 94 H Respiratory Rate 18 16 Respiratory Effort / Characteristics Respiratory Depth Normal Respiratory Pattern Blood Pressure Blood Pressure [Right Arm] 149/79 H 157/96 H Blood Pressure Mean Blood Pressure Mean [Right Arm] 102 116 Blood Pressure Position [Right Arm] Pulse Oximetry 93 94 Oxygen Delivery Method Room Air Room Air Sepsis Recent Fever Within 48 Hours Sepsis New/Unexplained Change in Mental Status Sepsis Action Taken by Nursing Laboratory Data 12/30/23 15:21 12/30/23 15:21 Lab Results 12/30/23 12/30/23 Range/Units 15:21 20:41 WBC 17.61 H (4.8-10.8) K/ul RBC 4.77 (4.20-5.40) M/uL Hgb 15.3 (12.0-16.0) g/dl Hct 45.2 (37.0-47.0) % MCV 94.8 (80.0-100.0) fL MCH 32.1 (25.0-34.0) pg MCHC 33.8 (32.0-36.0) g/dL RDW Std Deviation 42.5 (36.4-46.3) fL RDW Coeff of Mayank 12.2 (11.5-14.5) % Plt Count 290 (130-400) K/uL MPV 9.6 (9.4-12.4) fL Immature Gran % (Auto) 0.6 % Neut % (Auto) 86.1 % Lymph % (Auto) 6.1 % [place] % (Auto) 6.8 % Eos % (Auto) 0.1 % Baso % (Auto) 0.3 % Neut # (Auto) 15.16 H (1.40-6.50) K/uL Lymph # (Auto) 1.07 L (1.20-3.40) K/uL [place] # (Auto) 1.19 H (0.11-0.59) K/uL Eos # (Auto) 0.02 (0.00-0.50) K/uL Baso # (Auto) 0.06 (0.00-0.20) K/uL Immature Gran # (Auto) 0.11 (0.01-0.20) K/uL Sodium 137 (136-145) mmol/L Potassium 3.3 L (3.5-5.1) mmol/L Chloride 97 L (98-107) mmol/L Carbon Dioxide 30 (21-32) mmol/L Anion Gap 10 (3-11) BUN 19 (6-23) mg/dl Creatinine 0.92 (0.6-1.2) mg/dl Est Cr Clr Drug Dosing 43.2 ml/min Est GFR ( Amer) 64.0 ml/min Est GFR (Non-Af Amer) 55.2 ml/min BUN/Creatinine Ratio 20.7 H (10-20) Glucose 120 H (70-99(Fasting)) mg/dl Lactate 2.1 H* (0.4-2.0) mmol/L Calcium 11.1 H (8.6-10.3) mg/dl Total Bilirubin 0.8 (0.2-1.0) mg/dl AST 23 (13-39) U/L ALT 22 (7-52) U/L Alkaline Phosphatase 106 H (34-104) U/L Total Protein 7.5 (6.0-8.3) gm/dl Albumin 4.7 (3.4-5.0) gm/dl Globulin 2.8 (2.5-4.0) gm/dl Albumin/Globulin Ratio 1.7 (0.9-2) Lipase 26 (11-82) U/L Urine Color Yellow Urine Appearance Clear (Clear) Urine pH 7.0 (4.5-7.5) Ur Specific [place] 1.027 (1.000-1.030) Urine Protein Negative (Negative) Urine Glucose (UA) Negative (Negative) Urine Ketones Negative (Negative) Urine Blood Negative (Negative) Urine Nitrite Negative (Negative) Urine Bilirubin Negative (Negative) Urine Urobilinogen Negative (Negative) Ur Leukocyte Esterase Trace H (Negative) Urine WBC (Auto) 1-5 (0-5) /hpf Urine RBC (Auto) 0-4 (0-4) /hpf U Hyaline Cast (Auto) 0 (0-5) /lpf U Epithel Cells (Auto) 5-10 H (0-5) /lpf Urine Bacteria (Auto) Negative (Negative) Administered Medications Sodium Chloride (Nss) 1,000 mls @ 125 mls/hr IV .Q8H LAURIE Stop: 01/29/24 20:29 Last Admin: 12/30/23 21:54 Dose: Not Given Documented By: ACC Discontinued Medications Sodium Chloride (Nss) 1,000 mls @ 999 mls/hr IV .Q1H1M STA Stop: 12/30/23 15:08 Last Infusion: 12/30/23 19:11 Dose: Infused Documented By: Admin: 12/30/23 15:19 Dose: 999 mls/hr Documented By: Sodium Chloride (Nss) 500 mls @ 999 mls/hr IV .Q31M ONE Stop: 12/30/23 22:27 Last Admin: 12/30/23 22:12 Dose: 999 mls/hr Documented By: ACC Ioversol (Optiray 320 500ml) 92 ml IV ONCE ONE Stop: 12/30/23 19:32 Last Admin: 12/30/23 19:31 Dose: 92 ml Documented By: GEP Ondansetron HCl (Ondansetron Inj 2 Mg/Ml 2 Ml Vial) 4 mg IV NOW STA Stop: 12/30/23 14:09 Last Admin: 12/30/23 15:19 Dose: Not Given Documented By: Imaging Data Radiologist's Impression: Abdomen/Pelvis CT 12/30/23 18:29 Exam(s): CT ABDOMEN + PELVIS With Contrast IV Amt: 92 cc opti 320 EXAM: CT Abdomen and Pelvis With Intravenous Contrast CLINICAL HISTORY: Reason for exam: abd pain, vomiting. TECHNIQUE: Axial computed tomography images of the abdomen and pelvis with intravenous contrast. CTDI is 19.72 mGy and DLP is 962.01 mGy-cm. Automated exposure control was utilized for the study. A dose lowering technique was utilized adhering to the principles of ALARA. CONTRAST: Patient received 92 cc opti 320 of IV contrast COMPARISON: CT abdomen pelvis 02/12/2016 FINDINGS: Mediastinum: Trace hiatal hernia. ABDOMEN: Liver: Unremarkable. Gallbladder and bile ducts: Cholecystectomy. Dilated biliary tree. No radiopaque stone. Pancreas: Unremarkable. Spleen: Unremarkable. Adrenals: Unremarkable. Kidneys and ureters: No hydronephrosis. Anterior cortical scarring and calcification within the right kidney. Stomach and bowel: Mild colonic mucosal thickening from the descending colon through the rectum consistent with mild nonspecific colitis. No bowel obstruction. PELVIS: Appendix: No findings to suggest acute appendicitis. Bladder: Unremarkable. Reproductive: Hysterectomy. ABDOMEN and PELVIS: Intraperitoneal space: Unremarkable. No free air. No significant fluid collection. Bones/joints: No acute fracture. Soft tissues: Unremarkable. Vasculature: Unremarkable. Lymph nodes: Unremarkable. IMPRESSION: 1. Mild colonic mucosal thickening from the descending colon through the rectum consistent with mild nonspecific colitis. 2. Trace hiatal hernia. Electronically signed by: Kurtis Grullon MD 12/30/23 19:47 PM Discharge Plan Visit Data Chief Complaint: Vomiting Stated Complaint: VOMITING ED Provider: Chase Dominguez Discharge Problem: Colitis, Nausea, vomiting, and diarrhea, High serum lactate Forms Stand Alone Forms: My [employer] Prescriptions Prescriptions: No Action rosuvastatin 20 mg tablet 20 mg PO DAILY Qty: 90 3RF citalopram 20 mg tablet 20 mg PO DAILY Qty: 90 3RF potassium chloride 10 mEq capsule, extended release 10 meq PO DAILY Qty: 90 1RF gabapentin 100 mg capsule 100 mg PO DAILY Qty: 90 3RF spironolactone 25 mg tablet 25 mg PO DAILY Qty: 90 1RF hydrochlorothiazide 50 mg tablet 50 mg PO DAILY Qty: 90 3RF lorazepam 0.5 mg tablet 0.5 mg PO DAILY PRN (Reason: anxiety) 90 Days Qty: 90 0RF diltiazem HCl 360 mg capsule,extended release 24 hr 360 mg PO DAILY Qty: 90 3RF aspirin 81 mg tablet,delayed release (DR/EC) 81 mg PO DAILY timolol 0.25 % drops 1 drp ophthalmic (eye) DAILY cholecalciferol (vitamin D3) 10 mcg (400 unit) capsule 10 mcg PO DAILY acetaminophen [Tylenol Arthritis Pain] 650 mg tablet extended release 650 mg PO Q8H PRN (Reason: Pain) multivitamin Tablet 1 tab PO DAILY latanoprost 0.005 % drops 1 drp OPB DAILY polyethylene glycol 3350 [Miralax] 17 gram/dose Powder 17 g PO DAILY azelastine 137 mcg (0.1 %) aerosol,spray 2 spray intranasal DAILY Rx Instructions: USE 2 SPRAYS IN EACH NOSTRIL DAILY Referrals Referrals: Gabriel Davis DO [Primary Care Provider] -
[2023-12-31] MEDS: POTASSIUM CHLORIDE CRTAB 20 MEQ TABCR PO STA (01:24)
[2023-12-31] MEDS: PIPERACILLIN/TAZOBACTAM 4.5 GM/100 ML BAG IV ONE (01:31)
[2023-12-31] MEDS ORDERED: LORazepam 0.5 MG TAB PO PRN (01:49)
[2023-12-31] MEDS ORDERED: ONDANSETRON INJ 2 MG/ML 2 ML VIAL IV PRN (01:49)
--- NOTE | 2023-12-31 05:12 | Billing Data ---
Date of Service December 30, 2023 Coding Level of Care Code 47280 INT INP/OBS CARE
[2023-12-31 06:21] LABS: Adenovirus F 40/41 PCR Not Detected (NotDetected); Astrovirus PCR Not Detected (NotDetected); Campylobacter PCR Not Detected (NotDetected); Cryptosporidium PCR Not Detected (NotDetected); Cyclospora cayetanensis PCR Not Detected (NotDetected); Entamoeba histolytica PCR Not Detected (NotDetected); Enteroaggregative E.coli(EAEC) Not Detected (NotDetected); Enteropathogenic E.coli (EPEC) Not Detected (NotDetected); Enterotoxigenic E.coli (ETEC) Not Detected (NotDetected); Giardia lamblia PCR Not Detected (NotDetected); Norovirus GI/GII PCR Not Detected (NotDetected); Plesiomonas shigelloides PCR Not Detected (NotDetected); Rotavirus A PCR Not Detected (NotDetected); Salmonella PCR Not Detected (NotDetected); Sapovirus PCR Not Detected (NotDetected); Shiga-like Toxin E.coli (STEC) Not Detected (NotDetected); Shigella/Enteroinvasive E.coli Not Detected (NotDetected); Vibrio cholerae PCR Not Detected (NotDetected); Vibrio species PCR Not Detected (NotDetected); Yersinia enterocolitica PCR Not Detected (NotDetected)
[2023-12-31 06:51] LABS: Basophils # (auto) 0.04 K/uL (0.00-0.20); Basophils % (auto) 0.4 %; Eosinophils # (auto) 0.11 K/uL (0.00-0.50); Eosinophils % (auto) 1.2 %; Hematocrit (blood only) 38.6 % (37.0-47.0); Hemoglobin 13.1 g/dl (12.0-16.0); Immature Granulocytes # (auto) 0.04 K/uL (0.01-0.20); Immature Granulocytes % (auto) 0.4 %; Lymphocytes # (auto) 2.05 K/uL (1.20-3.40); Lymphocytes % (auto) 22.2 %; Mean Corpuscular Hgb Conc 33.9 g/dL (32.0-36.0); Mean Corpuscular Volume 94.4 fL (80.0-100.0); Mean Platelet Volume 9.8 fL (9.4-12.4); Monocytes # (auto) 0.92 K/uL (0.11-0.59); Neutrophils # (auto) 6.08 K/uL (1.40-6.50); Neutrophils % (auto) 65.8 %; Platelet Count 235 K/uL (130-400); RDW Coefficient of Variation 12.5 % (11.5-14.5); RDW Standard Deviation 43.7 fL (36.4-46.3); Red Blood Count 4.09 M/uL (4.20-5.40); White Blood Count 9.24 K/ul (4.8-10.8)
[2023-12-31 07:05] LABS: Albumin Globulin Ratio 1.9 (0.9-2); Albumin Level 4.1 gm/dl (3.4-5.0); BUN Creatinine Ratio 17.7 (10-20); Bilirubin,Total 0.9 mg/dl (0.2-1.0); Calcium 9.3 mg/dl (8.6-10.3); Creatinine Clr Calc Pharmacy 50.3 ml/min; Est GFR (African American) 76.9 ml/min; Est GFR (Non-African American) 66.4 ml/min; Globulin 2.2 gm/dl (2.5-4.0); Magnesium 1.9 mg/dl (1.7-2.4); Potassium 3.4 mmol/L (3.5-5.1); Total Protein 6.3 gm/dl (6.0-8.3)
[2023-12-31] MEDS: hydroCHLOROthiazide 25 MG TAB PO SCH (08:12)
[2023-12-31] MEDS: PIPERACILLIN/TAZOBACTAM 4.5 GM in DEXTROSE 5% MINI-B 100 ML IV SCH (08:12)
[2023-12-31] MEDS: TIMOLOL MALEATE 0.25% OP SOLN 5 ML BTL OP SCH (08:13)
[2023-12-31] MEDS: dilTIAZem HCL 180 MG CAPCR PO SCH (08:14)
[2023-12-31] MEDS: POTASSIUM CHLORIDE 10 MEQ TABCR PO SCH (08:14)
[2023-12-31] MEDS: ROSUVASTATIN CALCIUM 20 MG TAB PO SCH (08:14)
[2023-12-31] MEDS: LATANOPROST 0.005% OP SOLN 2.5 ML BTL OPB SCH (08:15)
[2023-12-31] MEDS: AZELASTINE HCL 0.1% NASAL 200 SPRAYS/27,400 MCG BTL SCH (08:15)
[2023-12-31] MEDS: CITALOPRAM 20 MG TAB PO SCH (08:15)
[2023-12-31] MEDS: ASPIRIN 81 MG ECTAB PO SCH (08:15)
[2023-12-31] MEDS: GABAPENTIN 100 MG CAP PO SCH (08:15)
[2023-12-31] MEDS: SPIRONOLACTONE 25 MG TAB PO SCH (08:15)
[2023-12-31] MEDS: POLYETHYLENE (MIRALAX) 17 GM PACK PO SCH (08:16)
--- NOTE | 2023-12-31 10:48 | Discharge Summary ---
Date of Service December 31, 2023 Admission HPI Per Admitting Provider 88 y/o female with a PMHx of HTN, pacemaker placement, and depression/anxiety here for evaluation of nausea. Patient with 2 episodes of nonbloody emesis and some nausea starting this morning. Did have an instance of abdominal pain that resolved after a nonbloody loose bowel movement. Otherwise feeling well. No fevers or chills. No CP or SOB. No recent illnesses. There was concern for possible ischemic bowel upon admission. CT A&P with signs of colitis. Lactate slightly elevated at 2.1. Repeat 1.9. Fluid resuscitated with 1.5L. White count elevated to 17. Upon my interview patient is doing well. No more nausea or vomiting. No abdominal pain. Reports feeling hungry. Principal Diagnosis Gastroenteritis, colitis Discharge Exam The patient is awake, alert and oriented 3, well developed and well nourished, normocephalic and atraumatic, lying in bed and in no acute distress. HEENT--PERRL, EOMI, mucous membranes and oropharynx mildly dry Neck--supple. No JVD. No bruits. Thyroid normal, trachea midline, no adenopathy. Heart--normal S1 and S2. No murmurs, rubs or gallops. Lungs--clear bilaterally, no respiratory distress, no accessory muscle use. Abdomen--normal bowel sounds and soft. Mild epigastric and left sided abdominal pain Extremities--no cyanosis or clubbing. No edema. Dermatologic--normal skin turgor, normal color, no abnormal lymph nodes, no rash. Neurologic--cranial nerves II through XII grossly intact. Rheumatologic--normal range of motion. Psychiatric--normal affect. Discharge Data Allergies Allergy/AdvReac Type Severity Reaction Status Date / Time No Known Allergies Allergy Verified 12/30/23 19:56 Consultations 12/30/23 22:11 ED Decision to Admit Stat Ordered Studies 12/30/23 18:29 CT abd pelvis IV con only Stat Hospital Course (1) Sepsis: Patient meets SIRs criteria with leukocytosis, tachycardia, and elevated lactate on admission. CT A&P with signs of colitis. Started empiric Zosyn and fluid resuscitation. Lactate improved after 1.5L NS. Not ideal study for ischemic bowel evaluation, but as patient clinically well and lactate improving would hold off on repeat scan for now. Continue with mIVF @ 125 mL. Continue Zosyn for now. CT scan of the abdomen showed evidence of colitis Patient expresses will need to be discharged, states her symptoms are resolved Will discharge her on p.o. Flagyl and ciprofloxacin for 5 days (2) Nausea, vomiting, and diarrhea: See above (3) Colitis: See above (4) Hypokalemia: Repleted. Resume home K. Check Mag. Replete as indicated (5) Primary hypertension: Continue home meds (6) Hyperlipidemia: Continue home meds (7) Depression: Continue home meds (8) Anxiety: Continue home meds (9) History of permanent cardiac pacemaker placement: Stable (10) High serum lactate: Resolved Plan Discharge home Total Time Total Time Spent Total Time Spent (In Minutes): 35 Discharge Plan Discharge Items Patient Disposition: Home - Self-Care Reason For Visit: VOMITING Discharge Diagnosis: gastroeteritis, colitis Activity: Resume your previous activity Non-emergency contact: Primary Care Provider Call non-emergency contact if: you have any medication questions Follow-up/Referrals: Gabriel Davis DO [Primary Care Provider] - Diet: Regular Addtl Attending Provider Instructions: please make appointment to follow up with your regular PCP Pending Studies at Discharge: No Stand-Alone Forms: My [employer], Smoking Cessation Medications and DC Order Prescriptions: New ciprofloxacin HCl 500 mg tablet 500 mg PO BID 5 Days Qty: 10 0RF metronidazole [Flagyl] 375 mg capsule 375 mg PO BID 5 Days Qty: 10 0RF Continued rosuvastatin 20 mg tablet 20 mg PO DAILY Qty: 90 3RF citalopram 20 mg tablet 20 mg PO DAILY Qty: 90 3RF potassium chloride 10 mEq capsule, extended release 10 meq PO DAILY Qty: 90 1RF gabapentin 100 mg capsule 100 mg PO DAILY Qty: 90 3RF spironolactone 25 mg tablet 25 mg PO DAILY Qty: 90 1RF hydrochlorothiazide 50 mg tablet 50 mg PO DAILY Qty: 90 3RF lorazepam 0.5 mg tablet 0.5 mg PO DAILY PRN (Reason: anxiety) 90 Days Qty: 90 0RF diltiazem HCl 360 mg capsule,extended release 24 hr 360 mg PO DAILY Qty: 90 3RF aspirin 81 mg tablet,delayed release (DR/EC) 81 mg PO DAILY timolol 0.25 % drops 1 drp ophthalmic (eye) DAILY cholecalciferol (vitamin D3) 10 mcg (400 unit) capsule 10 mcg PO DAILY acetaminophen [Tylenol Arthritis Pain] 650 mg tablet extended release 650 mg PO Q8H PRN (Reason: Pain) multivitamin Tablet 1 tab PO DAILY latanoprost 0.005 % drops 1 drp OPB DAILY polyethylene glycol 3350 [Miralax] 17 gram/dose Powder 17 g PO DAILY azelastine 137 mcg (0.1 %) aerosol,spray 2 spray intranasal DAILY Rx Instructions: USE 2 SPRAYS IN EACH NOSTRIL DAILY Discharge Orders: Discharge Order (Routine); Ordered 12/31/23 Ordered By: Anderson Leal Admission Data Admit Date/Time: 12/31/23 00:08 Attending Provider: Anderson Leal Admit Provider: Sara Iraheta Primary Care Provider: Gabriel Davis Other Providers: Elaina Terry Other Interventions: Discharge Summary Assessment (RN) Last Done: 12/31/23 10:19 Coding Level of Care Code 98010 INP/OBS DISCH >30 MIN Diagnoses Sepsis A41.9 Nausea, vomiting, and diarrhea R11.2; R19.7 Colitis K52.9 Hypokalemia E87.6 Primary hypertension I10 Hyperlipidemia E78.5 Depression F32.A Anxiety F41.9 History of permanent cardiac pacemaker placement Z95.0 High serum lactate R79.89 Time Spent (min) 35
== END 2023-12-31 10:30 | disposition home or self-care (01) ==
LOC: EDINP 13:54 → ED 13:54 → SUATTDRO 12-31 00:08 → EDINP 12-31 01:50